=== PATIENT | female | born 1980 | race Caucasian/White ===

== ENCOUNTER 2018-07-02 10:22 | Outpatient (CLI) | payer OTHER | END 2018-07-02 17:00 | disposition home or self-care (01) | LOC: SONOGRAMA 10:22 | DX: M25.571 Pain in right ankle and joints of right foot (principal); S93.431A Sprain of tibiofibular ligament of right ankle, initial encounter ==

== ENCOUNTER 2018-11-15 10:14 | Outpatient (CLI) | payer OTHER | END 2018-11-15 10:19 | disposition home or self-care (01) | LOC: SONOGRAMA 10:14 | DX: M25.571 Pain in right ankle and joints of right foot (principal); S93.432A Sprain of tibiofibular ligament of left ankle, initial encounter ==